=== PATIENT | male | born 1990 | race Caucasian/White ===

== ENCOUNTER 2017-11-08 18:55 | Emergency (ER) | payer OTHER ==
[~2017-11-08] VITALS: Ht 170.2 cm; Wt 90.7 kg
[~2017-11-08 18:55] MED LIST: CIME400 PO; PRED10 PO; PRED20 PO; PROM25 PO; TRAM50 PO
== END 2017-11-08 20:08 | disposition home or self-care (01) ==
LOC: ER 18:55
DX: M25.572 Pain in left ankle and joints of left foot (principal)
CPT/HCPCS: 29515; 73610; 99283; L1906